=== PATIENT | female | born 2000 | race African-American/Black ===

== ENCOUNTER 2025-01-08 08:51 | Day surgery (SDC) | payer OTHER ==
[~2025-01-08] VITALS: Ht 157.5 cm; Wt 60.9 kg
[~2025-01-08 08:51] MED LIST: KETOROLAC 30 MG/ML 1 ML VIAL As Ordered ONE; LIDOCAINE 2% 100 MG/5 ML SDV (FOR ANES.) As Ordered ONE; MIDAZOLAM INJ 2 MG/2 ML VIAL As Ordered ONE; ONDANSETRON 4MG/2ML VIAL As Ordered ONE; ROCURONIUM BROMIDE 50MG/5ML VIAL As Ordered ONE; dexAMETHasone 4 MG/ML 1 ML VIAL As Ordered ONE
[2025-01-08 09:38] LABS: PLATELET COUNT, AUTOMATED 201 10^3/uL (150-450)
[2025-01-08] MEDS: LR 1,000 ML IV SCH (09:55)
[2025-01-08] MEDS: SCOPOLAMINE 1MG TRANSDERMAL PATCH TOP ONE (10:24)
[2025-01-08] MEDS ORDERED: ACETAMINOPHEN 1000MG/100ML IV BAG As Ordered ONE (12:04)
[2025-01-08] MEDS ORDERED: HYDROmorphone HCL 2 MG/ML 1 ML VIAL As Ordered ONE (12:16)
[2025-01-08] MEDS ORDERED: SUGAMMADEX SODIUM 500 MG/5 ML VIAL As Ordered ONE (12:25)
[2025-01-08] MEDS ORDERED: ONDANSETRON 4MG/2ML VIAL IV PRN (12:40)
[2025-01-08] MEDS ORDERED: HYDROMORPHONE HCL 0.5 MG/0.5 ML SYRINGE IV PRN (12:40)
[2025-01-08 15:42] VITALS: BP 119/62; TEMP 98.4; O2SAT 99
[2025-01-10 14:12] LABS: HPV APTIMA Not Detected (Not Detected)
== END 2025-01-08 16:05 | disposition home or self-care (01) ==
LOC: M SDC 08:51
PROVIDERS: ATTEND Obstetrics & Gynecology
DX: Z30.2 Encounter for sterilization (principal)
CPT/HCPCS: 36415; 58661; 81025; 85027; 86850; 86900; 86901; 87624; 88302; G0123; J0131; J0665; J1100; J1171; J1885; J2250; J2405; J3010